=== PATIENT | female | born 1950 | race Caucasian/White ===

== ENCOUNTER 2019-04-08 09:53 | Observation (INO) ==
[2019-04-08] MEDS ORDERED: Naloxone 0.4 MG/ML INJ IVP PRN (14:36)
[2019-04-08] MEDS ORDERED: Ondansetron 4 MG/2 ML VIAL IVP PRN (14:36)
[2019-04-08] MEDS ORDERED: Acetaminophen 325 MG TABLET PO PRN (14:36)
[2019-04-08] MEDS ORDERED: *HR* HYDROcodone/Acet 5/325 mg TABLET PO PRN (14:36)
[2019-04-08] MEDS ORDERED: Furosemide 20 MG/2 ML VIAL IVP ONE (14:40)
--- NOTE | 2019-04-08 15:09 | Internal Med History&Physical ---
Date of Encounter: 04/08/19 Time of Encounter: 15:04 Internal Medicine - H&P: HPI Chief complaint: SOB, Cough and chest pressure Admitted From: Emergency Dept Plans for Post Hospital Care: Home History of present illness: Ms. Paredes is a 68 year old female with a known past medical history of COPD, diastolic CHF, hypertension and urinary incontinence patient presented to [place] emergency room complaining of SOB, chest pressure and she felt more like indigestion since this morning. She was transferred to our hospital further care. She does have intermitted SOB, Cough with greenish expectoration for few days. She denied any CP now. She denied any recent travel history/sick contacts. In the [place] ER her CXR showed left basilar infiltrate and mild pulmonary vascular congestion. Her initial troponin lesson 0.03 and WBC @ 6.2. She does have tachypnea and tachycardia Past Med Surg Social Fam HX - Past Medical History Medical history: CHF, COPD, GERD, hyperlipidemia, hypertension Additional medical history: HIATAL HERNIA. ABDOMINAL WALL HERNIA. CHOLELETHIASIS Psychiatric history: no psych history - Past Surgical History Additional surgical history: dental - Social History Smoking Status: Never smoker Smokeless Tobacco Status: No Alcohol use: none Drug use: none - Family History Mother History Unknown: Yes Father Hx Family Cardiac Disorders: Yes ([place]) Internal Medicine - H&P: Meds Aspirin [Lo-Dose Aspirin EC] 81 mg PO DAILY 07/22/16 [History] Cyclobenzaprine HCl 10 mg PO TID PRN 07/22/16 [History] Furosemide [Lasix] 40 mg PO DAILY 07/22/16 [History] Losartan [Cozaar] 50 mg PO DAILY 07/22/16 [History] Omeprazole [PriLOSEC] 40 mg PO DAILY 07/22/16 [History] Oxybutynin Chloride [Ditropan Xl] 10 mg PO DAILY 04/08/19 [History] Allergy/AdvReac Type Severity Reaction Status Date / Time tetracaine [From Pontocaine] Allergy Anaphylaxis Verified 01/08/17 21:14 Lemon AdvReac Blister Verified 01/08/17 20:56 All Systems PM: A 10-system review of systems was performed and is negative for pertinent findings except as documented above in the HPI. Review of systems: All the systems are reviewed everything is benign except the systems and symptoms I mentioned in the history of present illness - Constitutional Vitals: Temp Pulse Resp BP Pulse Ox 98.4 F 106 18 152/95 96 04/08/19 11:45 04/08/19 11:45 04/08/19 11:45 04/08/19 11:45 04/08/19 11:45 General appearance: Present: cooperative, mild distress, A&O X 3, answers questions appropriately Exam: Looks dehydrated with dry mucous membranes - Head Head exam: Present: atraumatic, normal inspection - Neck Neck exam general surgery: Present: supple - Respiratory Respiratory exam: Present: decreased breath sounds, wheezes (mild). Absent: rales, respiratory distress, rhonchi - Cardiovascular Cardiovascular exam: Present: +S1, +S2, tachycardia. Absent: systolic murmur - GI/Abdominal GI/Abdominal exam: Present: normal bowel sounds, soft. Absent: rebound, rigid, tenderness - Extremities Exam Extremities exam: Present: normal inspection. Absent: calf tenderness, pedal edema, tenderness - Back Exam Back exam: Absent: CVA tenderness (L), CVA tenderness (R) - Neurological Exam Neurological exam: Present: alert, CN II-XII intact, oriented X3. Absent: facial droop, speech deficit - Psychiatric Psychiatric exam: Present: normal affect, normal mood - Skin Skin exam: Present: dry. Absent: rash - Assessment and Plan (1) Pneumonia Current Visit: No Status: Acute Assessment and plan: Mostly bacterial pneumonia reviewed chest x-ray showed left basilar infiltrates and kaitlynn bronchial coughing/thickening blood cultures were drawn at [facility] ER Check sputum cx , step pneumonia, Legionella antigen and respiratory viral panel started her on empirical antibiotic IV Rocephin and azithromycin also started her on gentle IV hydration Qualifiers: Pneumonia type: due to unspecified organism Laterality: left Lung location: lower lobe of lung Qualified Code(s): J18.1 - Lobar pneumonia, unspecified organism (2) SIRS (systemic inflammatory response syndrome) Current Visit: Yes Status: Acute Assessment and plan: She does meet SIRS criteria with tachycardia and source of inf as PNA cont above care (3) Chest pain Current Visit: No Status: Acute Assessment and plan: Will admit the pt into [facility] for observation Will place pt on nuclear monitoring technician check serial troponin so far negative troponin Ordered EKG.. Unable to find EKG from [place] Cont ASA and Nitro PRN for pain Will check FLP in AM she is scheduled for outpatient stress test in a week since patient does have active pneumonia now will hold on to stress test for now continue close monitoring however will keep her NPO after midnight Qualifiers: Chest pain type: unspecified Qualified Code(s): R07.9 - Chest pain, un specified (4) Diastolic CHF Current Visit: Yes Status: Chronic Assessment and plan: Reviewed her 2D Echo from 2016 showed preserved LVEF and mild diastolic LV ventricular dysfunction not in exacerbation resumed all home medications except diuretics since pt looks dehydrated Qualifiers: Heart failure chronicity: chronic Qualified Code(s): I50.32 - Chronic diastolic (congestive) heart failure (5) COPD (chronic obstructive pulmonary disease) Current Visit: Yes Status: Acute Assessment and plan: Not in exacerbation started her on frequent bronchodilator therapy no need of steroids Qualifiers: Emphysema type: unspecified Qualified Code(s): J43.9 - Emphysema, unspecified (6) Hypertension Current Visit: Yes Status: Chronic Assessment and plan: Stable blood pressure continue current home medications Qualifiers: Hypertension type: essential hypertension Qualified Code(s): I10 - Essential (primary) hypertension (7) Urinary incontinence Current Visit: Yes Status: Acute Assessment and plan: Continue home medication oxybutynin Qualifiers: Urinary Incontinence type: unspecified incontinence Qualified Code(s): R32 - Unspecified urinary incontinence - Time Spent With Patient Total time spent is greater than 50% in coordination of care (as documented) at patient's floor/unit and/or counseling patient:
[2019-04-08] MEDS ORDERED: 0.9 % Sodium Chloride 1,000 ML IVC SCH (15:15)
[2019-04-08] MEDS: cefTRIAXone 1,000 MG in Water for inj. (sterile) 20 ML 10 ML IVP SCH (15:22)
[2019-04-08] MEDS ORDERED: Azithromycin 500 MG in D5% in Water 250 ML IVPB SCH (16:00)
[2019-04-08] MEDS ORDERED: Ipratropium/Albuterol Neb 3 ML IH SCH (16:00)
[2019-04-08 18:44] LABS: Adenovirus Not Detected (Not Detect); Coronavirus 229E Not Detected (Not Detect); Coronavirus HKU1 Not Detected (Not Detect)
[2019-04-08 18:45] LABS: Bordetella Pertussis Not Detected (Not Detect); Chlamydophila pneumoniae Not Detected (Not Detect); Coronavirus NL63 Not Detected (Not Detect); Coronavirus OC43 Not Detected (Not Detect); Human Metapneumovirus Not Detected (Not Detect); Human Rhinovirus/Enterovirus Not Detected (Not Detect); Influenza A Subtype 2009 H1 Not Detected (Not Detect); Influenza A Untypeable Not Detected (Not Detect); Influenza B Not Detected (Not Detect); Mycoplasma pneumoniae Not Detected (Not Detect); Parainfluenza Virus 1 Not Detected (Not Detect); Parainfluenza Virus 2 Not Detected (Not Detect); Parainfluenza Virus 3 Not Detected (Not Detect); Parainfluenza Virus 4 Not Detected (Not Detect); Respiratory Syncytial Virus Not Detected (Not Detect)
[2019-04-08] MEDS ORDERED: Perflutren Lipid Microsphere 1.3 ML in 0.9 % Sodium Chloride 8.7 ML IVP ONE (19:57)
[2019-04-08] MEDS: Levalbuterol Neb 1.25 MG/3 ML IH SCH (21:33)
[2019-04-08] MEDS ORDERED: GI Cocktail 40 ML EACH PO ONE (23:25)
[2019-04-09] MEDS: Levalbuterol Neb 1.25 MG/3 ML IH SCH ×3 (03:32→15:56)
[2019-04-09 04:07] LABS: Hemoglobin 12.5 g/dL (11.5-15.4); Mean Corpuscular HGB Conc 32.9 g/dL (31.6-35.5); Mean Corpuscular Hemoglobin 29.2 pg (28.0-33.3); Mean Corpuscular Volume 88.8 fL (83.0-100.0); Mean Platelet Volume 10.6 fL (9.4-12.4); Platelet Count 242 K/mcL (140-400); Red Blood Count 4.28 M/mcL (3.82-4.97); Red Cell Distribution Width 13.5 % (11.5-14.5)
[2019-04-09 04:27] LABS: BUN/Creatinine Ratio 20 (6-26); Blood Urea Nitrogen 16 mg/dL (8-23); Calcium 9.1 mg/dL (8.6-10.3); Carbon Dioxide 21 mEq/L (23-29); Chloride 107 mEq/L (98-107); Chol/HDL Ratio 4.8 (0-4.9); Cholesterol 179 mg/dL (< 200); Glucose 147 mg/dL (70-105); HDL Cholesterol 37 mg/dL (40-59); LDL Cholesterol,Calculated 129 mg/dL (0-99); Osmolality,Calculated 294 (280-300); Potassium 4.6 mEq/L (3.5-5.1); Sodium 140 mEq/L (136-145); Triglycerides 63 mg/dL (< 150); eGFR For African Americans > 60 (> 60); eGFR For Non-African Americans > 60 (> 60)
[2019-04-09] MEDS: *HR* Heparin 5,000 UNIT/ML VIAL SQ SCH ×2 (05:59→15:36)
[2019-04-09] MEDS: cefTRIAXone 1,000 MG in Water for inj. (sterile) 20 ML 10 ML IVP SCH (08:03)
[2019-04-09] MEDS ORDERED: Aspirin Enteric Coated 81 MG Tablet PO SCH (09:00)
[2019-04-09 11:09] VITALS: BP 117/75
--- NOTE | 2019-04-09 13:57 | Electrocardiograph Report ---
[address] [address] Test Date: 2019-04-09 Pat Name: Mykel Paredes Department: 113 Room: 3B14 Gender: F [employer] Professional: : 1950 Requested By: Sylvia Cano Order Number: [id number] Reading MD: Kevin Lynch Measurements Intervals [place] Rate: 103 P: 28 UT: 139 QRS: 20 QRSD: 85 T: 23 QT: 322 QTc: 382 Interpretive Statements SINUS TACHYCARDIA NONSPECIFIC ST & T-WAVE ABNORMALITY ABNORMAL RHYTHM ECG Electronically Signed On 04-09-2019 13:55:16 EDT by Kevin Lynch
--- NOTE | 2019-04-09 14:25 | Discharge Summary ---
- NOTES TO OUTPATIENT PROVIDER Notes to Outpatient Provider: f/u with PCP in one week. Orders not resulted at time of discharge: Pending orders 04/08/19 15:03 EKG [ECG 12 lead ECG] [ECG] Routine 04/08/19 20:40 Culture,Sputum with Gram Stain [RM] Routine Date of Encounter: 04/09/19 Time of Encounter: 14:21 - Discharge Diagnosis (1) Pneumonia Priority: Primary Status: Acute Qualifiers: Pneumonia type: due to unspecified organism Laterality: left Lung location: lower lobe of lung Qualified Code(s): J18.1 - Lobar pneumonia, unspecified organism (2) SIRS (systemic inflammatory response syndrome) Priority: Primary Status: Acute (3) Sinus tachycardia Priority: Primary Status: Acute (4) Chest pain Priority: Secondary Status: Acute Qualifiers: Chest pain type: unspecified Qualified Code(s): R07.9 - Chest pain, unspecified (5) Diastolic CHF Priority: Secondary Status: Chronic Qualifiers: Heart failure chronicity: chronic Qualified Code(s): I50.32 - Chronic diastolic (congestive) heart failure (6) COPD (chronic obstructive pulmonary disease) Priority: Secondary Status: Acute Qualifiers: Emphysema type: unspecified Qualified Code(s): J43.9 - Emphysema, unspecified (7) Hypertension Priority: Secondary Status: Chronic Qualifiers: Hypertension type: essential hypertension Qualified Code(s): I10 - Essential (primary) hypertension (8) Urinary incontinence Priority: Secondary Status: Acute Qualifiers: Urinary Incontinence type: unspecified incontinence Qualified Code(s): R32 - Unspecified urinary incontinence Hospital course: Ms. Paredes is a 68 year old female with a known past medical history of COPD, diastolic CHF, hypertension and urinary incontinence patient presented to [place] emergency room complaining of SOB, chest pressure and she felt more like indigestion since this morning. She was transferred to our hospital further care. She does have intermitted SOB, Cough with greenish expectoration for few days. She denied any CP now. She denied any recent travel history/sick contacts. In the [place] ER her CXR showed left basilar infiltrate and mild pulmonary vascular congestion. Her initial troponin lesson 0.03 and WBC @ 6.2. She did have tachypnea and tachycardia. She was admitted in the hospital and placed on library monitor. Her serial troponin came back as negative . She denied any active chest pain. She was placed on frequent bronchodilator therapy and empirical antibiotic as well as systemic steroids. Patient stated she is breathing comfortably on room air today and feeling much better today. She would like to go home today. She still have sinus tachycardia with heart rate @100's so started her on low dose of Metoprolol. - Time Spent with Patient Total time spent providing and/or coordinating discharge services: - Discharge Medications Prescriptions: New Albuterol Sulfate [Albuterol Inhaler] 2 puff IH Q6HR PRN #1 hfa.aer.ad PRN Reason: Shortness Of Breath levoFLOXacin [Levaquin] 500 mg PO DAILY #4 tablet Metoprolol [Lopressor] 12.5 mg PO BID #30 tablet predniSONE [PredniSONE] 40 mg PO DAILY #10 tablet Continued Furosemide [Lasix] 40 mg PO DAILY Cyclobenzaprine HCl 10 mg PO TID PRN PRN Reason: Muscle Spasm Losartan [Cozaar] 50 mg PO DAILY Aspirin [Lo-Dose Aspirin EC] 81 mg PO DAILY Omeprazole [PriLOSEC] 40 mg PO DAILY Oxybutynin Chloride [Ditropan Xl] 10 mg PO DAILY Home Medications: Aspirin [Lo-Dose Aspirin EC] 81 mg PO DAILY 07/22/16 [History] Cyclobenzaprine HCl 10 mg PO TID PRN 07/22/16 [History] Furosemide [Lasix] 40 mg PO DAILY 07/22/16 [History] Losartan [Cozaar] 50 mg PO DAILY 07/22/16 [History] Omeprazole [PriLOSEC] 40 mg PO DAILY 07/22/16 [History] Oxybutynin Chloride [Ditropan Xl] 10 mg PO DAILY 04/08/19 [History] Albuterol Sulfate [Albuterol Inhaler] 2 puff IH Q6HR PRN #1 hfa.aer.ad 04/09/19 [Rx] Metoprolol [Lopressor] 12.5 mg PO BID #30 tablet 04/09/19 [Rx] levoFLOXacin [Levaquin] 500 mg PO DAILY #4 tablet 04/09/19 [Rx] predniSONE [PredniSONE] 40 mg PO DAILY #10 tablet 04/09/19 [Rx] Allergies/Adverse Reactions: Allergy/AdvReac Type Severity Reaction Status Date / Time tetracaine [From Pontocaine] Allergy Anaphylaxis Verified 01/08/17 21:14 Lemon AdvReac Blister Verified 01/08/17 20:56 Date of admission: 04/08/19 11:13 Primary care physician: PCP NONE Consults: 04/09/19 08:14 Consult to Nurse Navigator [CONS] Routine Comment: PNEUMONIA - Constitutional Vitals: Temp Pulse Resp BP Pulse Ox 97.9 F 111 24 117/75 98 04/09/19 11:08 04/09/19 11:08 04/09/19 11:08 04/09/19 11:08 04/09/19 11:08 General appearance: Present: cooperative, A&O X 3, answers questions appropriately Exam: Gen: Alert, awake, Oriented to time,place and person Chest: Diminished breath sounds B/L, No wheezing, No crackles, No rales Heart: S1S2+ tachcardia No murmurs Abd: Soft, NT, BS +, No organomegaly Ext: No edema, pulses are palpable, No calf tenderness Neuro : No acute focal neuro deficits noticed Skin: No rash. - Patient Status Disposition: Home, Self-Care Condition: Good Overall status at discharge: patient is back to baseline - Discharge Instructions Follow Up With: NONE,PCP [Primary Care Provider] - - Diet and Activity Activity: increase activity as tolerated Diet: low salt diet
== END 2019-04-09 16:15 | disposition home or self-care (01) ==
LOC: CDU → 3BNU 16:42
PROVIDERS: ADMIT Internal Medicine Nephrology; ATTEND Internal Medicine Nephrology

== ENCOUNTER 2019-07-05 09:19 | Inpatient (IN) ==
--- NOTE | 2019-07-05 10:25 | Anesthesia Evaluation PreOp ---
Date of Encounter: 07/05/19 Time of Encounter: 10:23 - Past History Planned Operation: robotic transabdominal removal bladder mesh Cardiac History: HTN, Hyperlipidemia Pulmonary History: Former smoker (quit 2003), Asthma, COPD EXHIBIT CARPENTER History: Denies Any Significant HX Other Medical History: Thyroid (hypo), GERD Anesthesia History: No Prior Anesthetic Complications, Past Anesthesia (hysterectomy, ESWL, hernia, bladder sling) : No Alcohol Use: none Drug use: none Medications and Allergies Aspirin [Lo-Dose Aspirin EC] 81 mg PO DAILY 07/22/16 [History] Cyclobenzaprine HCl 10 mg PO TID PRN 07/22/16 [History] Furosemide [Lasix] 40 mg PO DAILY 07/22/16 [History] Losartan [Cozaar] 50 mg PO DAILY 07/22/16 [History] Omeprazole [PriLOSEC] 40 mg PO DAILY 07/22/16 [History] Oxybutynin Chloride [Ditropan XL] 10 mg PO DAILY 04/08/19 [History] Albuterol Sulfate [Albuterol Inhaler] 2 puff IH Q6HR PRN #1 hfa.aer.ad 04/09/19 [Rx] Metoprolol [Lopressor] 12.5 mg PO BID #30 tablet 04/09/19 [Rx] levoFLOXacin [Levaquin] 500 mg PO DAILY #4 tablet 04/09/19 [Rx] HYDROcodone/Acet 5/325 mg [[place] 5-325 mg] 1 tab PO Q6H PRN 3 Days #10 tab 05/21/19 [Rx] Levothyroxine Sodium [Levoxyl] 50 mcg PO DAILY 05/21/19 [History] levoFLOXacin [Levaquin] 500 mg PO DAILY #5 tablet 05/21/19 [Rx] Allergy/AdvReac Type Severity Reaction Status Date / Time etodolac Allergy Hives Verified 05/21/19 09:00 Lemon Allergy Blister Verified 05/21/19 09:00 tetracaine [From Pontocaine] AdvReac Severe Anaphylaxis Verified 06/23/19 09:42 - Meds/Allergy Pre-op Review Medications Reviewed: Yes Allergies Reviewed: Yes Beta Blockers on Current Med List: Yes (metoprolol) If Beta Blockers taken, Date/Time (Last Dose taken): 0700 Anesthesia Results - Labs Laboratory Tests 04/09/19 05/17/19 05/17/19 03:29 11:00 11:00 WBC 12.0 H D Hgb 13.5 Hct 38.0 Plt Count 242 Potassium 4.5 - Imaging EKG: report reviewed Additional studies: 03/2019 echocardiogram w enhance Impressions: LVEF 70%. Definity echo contrast was used. Indeterminate diastolic function. Normal right ventricular structure and function. Mild tricuspid regurgitation. No pulmonary hypertension. 06/2019 Indications: Pre-operative, Chest Pain Impression: No ischemia or infarct on perfusion study. Technical artifact present (rest only mid inferior perfusion defect of small size and mild intensity). Stress LVEF >70%. Pharmacologic stress ECG non-diagnostic for ischemia. Low risk study. Anesthesia Exam Vital Signs/O2 Sat/Glucose, Most Recent Temp Pulse Resp BP Pulse Ox 98.3 F 71 18 163/92 96 07/05/19 10:01 07/05/19 10:01 07/05/19 10:01 07/05/19 10:01 07/05/19 10:01 Weight: 93 kg NPO (# of Hours): > 8 hr - HEENT Pupil (Motor): Pupils equal Mallampati: II Teeth: Poor dentition (chipped top front right) - EXHIBIT CARPENTER LOC: Oriented EXHIBIT CARPENTER Motor: Normal RUE, Normal LUE, Normal RLE, Normal LLE, Normal Face EXHIBIT CARPENTER Sensory: Normal: RUE, LUE, RLE, LLE, Face - Cardiac Rhythm: Regular Murmur: None - Pulmonary Breath Sounds: bilateral Clear Respiratory Effort: Symmetrical Anesthesia Assess/Plan ASA Score: 3 Level of consciousness: Cooperative, Oriented Anesthetic Plan: General Monitoring Plan: Standard Monitors Recovery Plan: PACU
[2019-07-05] MEDS ORDERED: *HR* HYDROmorphone (PF) 1 MG/ML SYRINGE IVP PRN (10:29)
[2019-07-05] MEDS ORDERED: Gabapentin 300 MG CAPSULE PO ONE (10:29)
[2019-07-05] MEDS ORDERED: Albuterol 2.5 MG/3 ML NEBULIZER IH ONE (10:29)
[2019-07-05] MEDS ORDERED: Acetaminophen IV 1,000 MG/100 ML INFUS..BTL IVPB ONE (10:29)
[2019-07-05] MEDS ORDERED: *HR* Labetalol 20 MG/4 ML SYRINGE IVP PRN (10:29)
[2019-07-05] MEDS ORDERED: *HR* Promethazine 25 MG/ML VIAL IVP PRN (10:29)
[2019-07-05] MEDS ORDERED: Famotidine 20 MG/2 ML VIAL IVP ONE (10:29)
[2019-07-05] MEDS ORDERED: *HR* OxyCODONE Immed Rel 5 MG TABLET PO PRN (10:29)
[2019-07-05] MEDS ORDERED: Ondansetron 4 MG/2 ML VIAL IVP ONE (10:29)
[2019-07-05] MEDS ORDERED: CeFAZolin Syr 2,000MG/20 ML 2,000 MG/20 ML SYRINGE IVPB ONE (10:37)
--- NOTE | 2019-07-05 11:01 | History & Physical Report ---
Date of Encounter: 07/05/19 Time of Encounter: 11:00 24 Hour HP Update - Instructions Instructions: If the History and Physical is less than 30 days old and was completed prior to A.M. admission and or procedure and has NOT been updated on calendar day of procedure please complete this update prior to performing procedure. - Update Patient reports changes in Medical Condition: No Changes in examination, assessment, or condition: No Changes in Medication: No Preop tests/diagnostics Reviewed: Yes Surgery Remains Indicated: Yes Consent for Planned Operative Procedure(s) Verified: Yes - Pre-Operative Checklist Preoperative Checklist Indicated: Yes Prophylactic Antibiotic Ordered: Yes Is VTE Prophylaxis Indicated?: Yes
[2019-07-05] MEDS ORDERED: *HR* Propofol 200 MG/20 ML VIAL IVP ONE (11:56)
[2019-07-05] MEDS: Ringers Solution, Lactated 1,000 ML IVC SCH ×2 (12:00→14:17)
[2019-07-05] MEDS ORDERED: *HR* FentaNYL (PF) 100 MCG/2 ML VIAL ONE ×2 (12:08→13:29)
[2019-07-05] MEDS ORDERED: Dexamethasone 4 MG/ML VIAL ONE (12:10)
[2019-07-05] MEDS ORDERED: Lidocaine -MPF 2% 2 ML VIAL ONE (12:10)
[2019-07-05] MEDS ORDERED: Ondansetron 4 MG/2 ML VIAL ONE (12:10)
[2019-07-05] MEDS ORDERED: *HR* Succinylcholine 200 MG/10 ML VIAL IVP ONE (12:10)
[2019-07-05] MEDS ORDERED: *HR* Rocuronium Bromide 50 MG/5 ML VIAL ONE ×3 (12:10→17:18)
[2019-07-05] MEDS ORDERED: *HR* PHENYLEPHRINE 1,000 MCG/10 ML SYRINGE IVP ONE ×3 (13:15→18:44)
[2019-07-05] MEDS ORDERED: EPHEDrine 50 MG/ML VIAL ONE ×2 (15:21→17:02)
[2019-07-05] MEDS ORDERED: Neostigmine Methylsulfate 3 MG/3 ML SYRINGE ONE (16:29)
[2019-07-05] MEDS ORDERED: *HR* HYDROMORPHONE 2 MG/ML VIAL ONE (19:36)
--- NOTE | 2019-07-05 19:57 | Operative Note ---
Date of procedure: 07/05/19 Pre-op diagnosis: Eroded mesh into bladder Post-op diagnosis: same Procedure: Complicated lysis of adhesions Robotic transabdominal removal of bladder mesh and repair of bladder. Implants: 16-Greek Jaeger catheter 19-Greek Ramone drain Complications: None Anesthesia: GETA Surgeon: Phillip Merritt Was there an night assistant present: Yes Apprentice Plumber: Chayo Ramsay Estimated blood loss (cc): 300 Specimen: bladder mesh Condition: stable Disposition: PACU Procedure in Detail: INDICATIONS FOR PROCEDURE: Mrs. Paredes is a 68-year-old woman who previously had a transvaginal tape. She recently developed recurrent urinary tract infections and was noted to have a bladder stone. This was removed cystoscopically and mesh was seen eroding into the bladder. She then elected to proceed with a robotic-assisted transabdominal removal of bladder mesh and repair of bladder. She was informed of the risks of the procedure including but not limited to bleeding, infection, injury to other structures, need for further procedures, urinary incontinence, urine leak, bowel injury, DVT, PE and the risk of anesthesia. She is willing to proceed. PROCEDURE: After informed consent was obtained, the patient was taken to the operating room, placed supine on the table. She was given IV antibiotics for antibiotic coverage. She had GALLITO's and SCD's placed on the lower extremities for DVT prophylaxis. Induction of general anesthesia was performed. The arms were tucked and she was placed in lithotomy position. She was secured to the OR table with padding. An 16 Greek Jaeger catheter was placed. A 5mm incision was made in the left upper quadrant. She previously had abdominal surgery with abdominal wall mesh placed. I tried to stay lateral to that area. The Veress needle was i ntroduced. The water drop test passed. Pneumoperitoneum was initiated with low pressures initially. The abomen was insufflated. I then placed a 5mm laparoscopic port through this incision using the visual obturator and the camera. Once the trocar was in place, the port was noted to be within some adhesions. I was able to manipulate the port and identify the abdomen. There was a very dense adhesion from the falciform ligament extending down the midline towards the bladder. There was open space in the right lower quadrant and I placed my 2 robotic ports there. In order to aid in visualization I placed another 5 mm port in the right upper quadrant. Using the suction and sharp scissors the adhesions were taken down. The lysis of adhesions was extensive. This took approximately one hour to safely do so. Eventually I was able to place an 8 mm port in the infrapubic region. Another robotic port was placed lateral to the umbilicus. The 12 mm aerocele port was placed lateral to this on the left side. There was some bleeding from the omentum but it seemed to be controlled. Once all trocars were in place, the robot was docked to the patient and the monopolar scissors were placed on the right robotic arm. The bipolar [place] was in the left robotic arm and the Prograsp in the 4th arm. We initially retracted the bowel with the 4th arm. The medial umbilical ligaments were cauterized and the bladder was taken down off the anterior abdominal wall using electrocautery. The bladder was then grasped with a 4th arm and retracted cephalad. The space of Retzius was adherent. Careful dissection by the pubic bone was performed. I was able to identify the 2 arms of the mesh. One arm extended to the left lower quadrant and another was towards the right lower quadrant. With the mesh grasp I carefully dissected out. It appeared that the arm on the left side extended into the bladder. The bladder was opened during this dissection. I then cut the mesh off at the area where was located in the bladder. I then proceeded to dissect the right arm down. This went towards the urethra, but the mesh came back up along the right side of the urethra into the bladder. It appeared that the mesh was placed on the same side of the urethra. The mesh was removed. Hemostasis seemed adequate. I closed the bladder urothelial layer using a running 3-0 Monocryl suture. The muscular layer was closed using a running 2-0 Vicryl suture. A third layer using 2-0 Vicryl suture was placed over top to imbricate the suture inward. At this point I placed a 19-Greek Ramone through the fourth arm. This was secured to the skin. We then proceeded to close the wounds. The omentum was reassessed. There did appear to be some old blood clot, but there did not appear to be any extensive bleeding. The ports were then removed. The 12 mm port was closed using an 0 Vicryl suture. All incisions were then closed with 4-0 Monocryl in subcuticular fashion. All sponge, needle, and instrument counts were correct.
--- NOTE | 2019-07-05 20:02 | Operative Note ---
Date of procedure: 07/05/19 Pre-op diagnosis: Postoperative hemorrhage Post-op diagnosis: same Procedure: Exploratory laparoscopy Closure of dorsal venous complex Implants: 19-Turkish XU drain. Jaeger catheter. Complications: none Anesthesia: JAGJIT Surgeon: Phillip Merritt Was there an phlebotomist lab assistant present: No Estimated blood loss (cc): 510 Specimen: none Condition: stable Disposition: PACU Procedure in Detail: Indications: Mrs. Paredes is a 68-year-old woman who I just finished removal of bladder mesh. She was still intubated and I was alerted that she was having excessive bloody drainage from her XU. I monitored the XU in the operating room with her still intubated. The drainage did not slow down. At this point I felt it best to proceed with exploratory laparoscopy. I informed her that I was going to reexplore her. This was considered emergent. Procedure: The patient was already anesthetized. She was prepped and draped in the usual sterile fashion. I opened my port sites. A 5 mm port was placed and the abdomen was insufflated. The laparoscope was introduced into the abdomen. There was some minor blood clot over the omentum which was aspirated away. The remaining robotic ports were placed as before. The robot was then docked and the patient was pre-was placed in a headdown position. I explored the pelvis. There appeared to be bleeding coming from the dorsal venous complex. The blood clot was aspirated away. The dorsal venous complex was oversewed using a 3-0 Vicryl suture. Hemostasis appeared adequate. Surgical flow was placed on the dorsal venous complex. Surgicel was then placed over top as well. The bladder was then secured to the anterior abdominal wall using both 3-0 Vicryl sutures and Hemolok clips. I felt this would help in providing some tamponade effect upon the veinous complex. Hemostasis appeared adequate. I asked Dr. Varun German to come to the operating room. She reviewed the area of bleeding. She assess the omentum and was not concerned about the bleeding. At this point we proceeded to close. A XU drain was replaced. This was secured to the skin using a suture. The wounds were then closed after the ports were removed using 4-0 Vicryl suture . At the end the case all sponge, needle, and instrument counts were correct. The patient was then brought to the recovery room stable. She did receive 2 units of packed red blood cells during this portion of the case.
[2019-07-05] MEDS ORDERED: Ondansetron 4 MG/2 ML VIAL IVP PRN (21:28)
[2019-07-05] MEDS ORDERED: Naloxone 0.4 MG/ML INJ IVP PRN (21:28)
[2019-07-05] MEDS ORDERED: Acetaminophen 325 MG TABLET PO PRN (21:31)
--- NOTE | 2019-07-05 22:04 | Internal Medicine Consult Note ---
<Sandy Fox A - Last Filed: 07/06/19 05:45> Date of Encounter: 07/05/19 - Time Spent With Patient Total time spent is greater than 50% in coordination of care (as documented) at patient's floor/unit and/or counseling patient: Internal Medicine - CN: HPI - Data of Consult Requesting Physician: Phillip Merritt, - Consult Narrative History of present illness: Ms. Paredes is a 68 year old female Internal Medicine - CN: Meds Cyclobenzaprine HCl 10 mg PO TID PRN 07/22/16 [History] Furosemide [Lasix] 40 mg PO QAM PRN 07/22/16 [History] Omeprazole [PriLOSEC] 40 mg PO QAM 07/22/16 [History] Oxybutynin Chloride [Ditropan XL] 10 mg PO QAM 04/08/19 [History] Albuterol Sulfate [Albuterol Inhaler] 2 puff IH Q6HR PRN #1 hfa.aer.ad 04/09/19 [Rx] Metoprolol [Lopressor] 12.5 mg PO BID #30 tablet 04/09/19 [Rx] Levothyroxine Sodium [Levoxyl] 50 mcg PO QAM 05/21/19 [History] Aspirin [Lo-Dose Aspirin EC] 81 mg PO QAM 07/05/19 [History] Losartan Potassium [Cozaar] 50 mg PO QAM 07/05/19 [History] Allergy/AdvReac Type Severity Reaction Status Date / Time etodolac Allergy Hives Verified 07/05/19 10:35 Lemon Allergy Blister Verified 07/05/19 10:35 tetracaine [From Pontocaine] AdvReac Severe Anaphylaxis Verified 07/05/19 10:35 Hospitalist - CN: Exam - Constitutional Vitals: Temp Pulse Resp BP Pulse Ox 97.6 F 88 14 110/71 95 07/06/19 04:12 07/06/19 03:26 07/06/19 03:00 07/06/19 03:00 07/06/19 03:00 Internal Medicine - CN: Reslt - Labs CBC & Chem 7: 07/06/19 03:02 07/06/19 03:02 Labs: Short CBC 07/05/19 07/06/19 Range/Units 23:15 03:02 WBC 17.4 H 14.2 H (4.3-11.1) K/mcL Hgb 11.5 10.4 L (11.5-15.4) g/dL Hct 36.3 32.4 L (35.3-44.9) % Plt Count 156 149 (140-400) K/mcL Neutrophils # 15.2 H (1.6-8.9) K/mcL BMP 07/05/19 07/06/19 23:15 03:02 Sodium 139 140 Potassium 3.7 4.0 Chloride 110 H 111 H Carbon Dioxide 13 L 17 L BUN 12 12 Creatinine 0.77 0.77 Glucose 174 H 145 H Calcium 7.2 L 7.5 L - ABG Interpretation ABG results: PT/INR, D-dimer PT 13.1 Seconds (9.4-12.1) H 07/05/19 23:15 Consult Discharge Plan - Plan Referrals: Doris Condon, WOOL SHEARER [Primary Care Provider] - - Attending Attestation I performed a history and physical examination of the patient and discussed thei r management with the resident. I reviewed the resident's note and agree with the documented plan of care. In short patient is a 68-year-old female with multiple comorbidities who presented for elective surgery for removal of a transvaginal mesh which had eroded into the bladder wall (see operative notes). Postoperatively patient was noted to have excessive bloody drainage from her XU which did not gagandeep with time. Patient was subsequently taken for an emergent exploratory laparoscopy assisted by Dr. Varun German with no further findings of significant bleed. XU drain was replaced and Patient received 2 units of PRBCs and IV fluids to which she appears to have responded and was subsequently transferred to the ICU for close monitoring. On my assessment, patient's vitals are stable. She was awake alert oriented 3 and somewhat confused as to why she was in the ICU. Repeat hemoglobin was stable. Was noted to have an elevated lactic acid of 6.0. We will continue maintenance fluids and repeat lactic acid. Blood and urine cultures obtained. Agree with antibiotic coverage with Zosyn. <Marcin Graham - Last Filed: 07/06/19 06:27> Date of Encounter: 07/06/19 Time of Encounter: 22:00 - Time Spent With Patient Total time spent is greater than 50% in coordination of care (as documented) at patient's floor/unit and/or counseling patient: Internal Medicine - CN: HPI - Data of Consult Consult date: 07/05/19 Requesting Physician: Phillip Merritt, - Consult Narrative Reason for consult: Hypotension History of present illness: Ms. Paredes is a 68 year old female with significant past medical history of COPD, diastolic CHF, hypertension , thyroid disease, asthma, GERD, and urinary incontinence currently on oxybutynin, omeprazole, Lopressor, losartan, levothyroxine, Lasix, aspirin, cyclobenzaprine and albuterol presenting to the ICU after urological surgery. The patient was initially taken for bladder mesh placement by Dr. Merritt and was noted to have significant bloody output from her XU drain. The patient was subsequently taken back in the surgery where a venous complex was found as the source the patient's bleeding which was sealed. Patient has received 2 units of PRBCs and IV fluids and appears to have responded well. Ancef given perioperatively. Upon my initial examination the patient has been extubated in the ICU she is awake alert and oriented although lethargic status after surgery. The patient states that she feels nauseated and has soreness in her bladder area after the surgery but has no other concerns or complaints this time. She asks why that she is in the ICU. I explained to patient her surgical procedure and the necessity to take her back for hemodynamic stability after bleeding. While the patient states she understood this initially she asked again prior to my leaving the room why she was in the ICU. I again explained what was going on and the patient said that she understood and had no other concerns or complaints this time. The patient verifies all above stated past medical history, medications and allergies and states that she has nothing to add to this history. The cardiopulmonary exam is unremarkable, skin is pink warm and dry, abdomen appears to be distended but is otherwise soft it is tender to palpation in the lower quadrants however this is consistent with her recent surgery, laparotomy surgical sites are close appropriately there is no evidence of erythema or exudate from the wounds. XU drain has serosanguineous fluid noted as consistent with note from urological surgery. The patient is otherwise mechanically stable at this time. Assessment and plan: Hypotension status post pelvic surgery: Patient has received 2 units PRBCs and is currently on 0.9 sodium chloride maintenance fluid at 125 mL per hour. Patient has received Ancef. Perioperatively. Patient has orders placed for when necessary hydrocodone/acetaminophen 5/325 for moderate pain. Oxycodone for severe pain. Ondansetron/Phenergan when necessary for the management of nausea. Low threshold for transfusion, continue IV fluids. If patient remains stable overnight can be discharged to regular floor in the morning. DVT Prophylaxis: EPCDs Past Med Surg Social Fam HX - Past Medical History Medical history: asthma, CHF, COPD, GERD, hyperlipidemia, hypertension, kidney stones, thyroid disease Additional medical history: HIATAL HERNIA, stomach ulcer, chest pain hx, emphysema, bursitis,. ABDOMINAL WALL HERNIA. CHOLELETHIASIS Psychiatric history: no psych history - Past Surgical History Surgical History: herniorrhaphy, hysterectomy, NELSON/BSO, other Additional surgical history: dental, ganglion cyst, ESWL - Social History Smoking Status: Former smoker Smokeless Tobacco Status: No Alcohol use: none Drug use: none - Family History Father Hx Family Cardiac Disorders: Yes ([place]) ROS unobtainable: due to endotracheal tube Hospitalist - CN: Exam - Constitutional Vitals: Temp Pulse Resp BP Pulse Ox 97.5 F L 90 14 101/65 97 07/05/19 21:38 07/05/19 21:38 07/05/19 21:38 07/05/19 21:38 07/05/19 21:38 Exam: . Internal Medicine - CN: Reslt - Labs CBC & Chem 7: 07/06/19 03:02 07/06/19 03:02
--- NOTE | 2019-07-05 22:22 | Anesthesia Evaluation Post Op ---
Date of Encounter: 07/05/19 Time of Encounter: 21:30 - Vital Signs Vital Signs: Vital Signs/O2 Sat/Glucose, Most Current Temp Pulse Resp BP Pulse Ox 07/05/19 21:38 97.5 F L 90 14 101/65 97 07/05/19 21:28 97.5 F L 93 12 100/59 99 07/05/19 21:18 92 12 103/67 100 07/05/19 21:08 94 12 83/54 100 07/05/19 20:58 97.7 F 96 12 95/55 100 07/05/19 20:48 89 12 103/53 100 07/05/19 20:38 90 14 102/69 97 07/05/19 20:33 85 99/61 07/05/19 20:28 97.3 F L 92 12 101/59 100 07/05/19 20:18 76 10 96/62 100 07/05/19 20:15 70 97/59 07/05/19 20:08 72 10 91/57 95 07/05/19 20:03 74 89/57 07/05/19 19:58 97.1 F L 87 10 105/66 100 - Lungs Lungs: Clear Ascult./Percussion - Airway Airway: Non-obstructed - Cardiovascular Regular Rate - Mental Status Mental Status: Alert & Oriented, Answers Appropriately - Pain Pain Scale: 0 - Nausea Vomiting Nausea Vomiting: Not Present - Hydration Hydration: NPO - Discharge PostOp Status: Transfer Patient to floor (to ICU)
[2019-07-05] MEDS: 0.9 % Sodium Chloride 1,000 ML IVC SCH (22:26)
[2019-07-05 23:53] LABS: Basophils % 0.1 %; Hematocrit 36.3 % (35.3-44.9); Hemoglobin 11.5 g/dL (11.5-15.4); Immature Granulocytes % 0.4 % (0-4); Lymphocytes # 1.4 K/mcL (0.6-4.6); Mean Corpuscular HGB Conc 31.7 g/dL (31.6-35.5); Mean Corpuscular Volume 94.8 fL (83.0-100.0); Mean Platelet Volume 11.3 fL (9.4-12.4); Monocytes # 0.8 K/mcL (0.0-1.3); Monocytes % 4.6 %; Neutrophils # 15.2 K/mcL (1.6-8.9); Platelet Count 156 K/mcL (140-400); Red Blood Count 3.83 M/mcL (3.82-4.97); Red Cell Distribution Width 14.1 % (11.5-14.5); Segmented Neutrophils % 86.9 %; White Blood Count 17.4 K/mcL (4.3-11.1)
[2019-07-06 00:01] LABS: INR 1.2; Prothrombin Time 13.1 Seconds (9.4-12.1)
[2019-07-06 00:12] LABS: BUN/Creatinine Ratio 16 (6-26); Blood Urea Nitrogen 12 mg/dL (8-23); Calcium 7.2 mg/dL (8.6-10.3); Carbon Dioxide 13 mEq/L (23-29); Chloride 110 mEq/L (98-107); Glucose 174 mg/dL (70-105); Osmolality,Calculated 292 (280-300); Potassium 3.7 mEq/L (3.5-5.1); Sodium 139 mEq/L (136-145); eGFR For African Americans > 60 (> 60); eGFR For Non-African Americans > 60 (> 60)
[2019-07-06] MEDS ORDERED: Calcium Gluconate 2,000 MG in 0.9 % Sodium Chloride 100 ML IVPB ONE (00:49)
[2019-07-06] MEDS ORDERED: 0.9 % Sodium Chloride 1,000 ML IVC ONE (01:46)
[2019-07-06] MEDS: *HR* HYDROcodone/Acet 5/325 mg TABLET PO PRN ×3 (01:47→20:03)
[2019-07-06 03:34] LABS: BUN/Creatinine Ratio 16 (6-26); Blood Urea Nitrogen 12 mg/dL (8-23); Calcium 7.5 mg/dL (8.6-10.3); Carbon Dioxide 17 mEq/L (23-29); Chloride 111 mEq/L (98-107); Glucose 145 mg/dL (70-105); Osmolality,Calculated 292 (280-300); Sodium 140 mEq/L (136-145); eGFR For African Americans > 60 (> 60); eGFR For Non-African Americans > 60 (> 60)
[2019-07-06 03:52] LABS: Hematocrit 32.4 % (35.3-44.9); Hemoglobin 10.4 g/dL (11.5-15.4); Mean Corpuscular HGB Conc 32.1 g/dL (31.6-35.5); Mean Corpuscular Hemoglobin 29.5 pg (28.0-33.3); Mean Platelet Volume 11.6 fL (9.4-12.4); Platelet Count 149 K/mcL (140-400); Red Blood Count 3.52 M/mcL (3.82-4.97); Red Cell Distribution Width 14.1 % (11.5-14.5); White Blood Count 14.2 K/mcL (4.3-11.1)
[2019-07-06] MEDS ORDERED: Calcium Gluconate 1gm/50mL 1 GM/50 ML BAG IVPB ONE (04:14)
[2019-07-06] MEDS ORDERED: Piperacillin/Tazobactam 3.375 GM in 0.9 % Sodium Chloride Mini Bag 100 ML IVPB SCH ×2 (06:00→14:00)
[2019-07-06] MEDS: 0.9 % Sodium Chloride 1,000 ML IVC SCH ×2 (06:08→20:02)
--- NOTE | 2019-07-06 09:22 | Urology Progress Note ---
Date of Encounter: 07/06/19 Time of Encounter: 08:50 - Assessment and Plan (1) Urinary incontinence Current Visit: Yes Status: Acute Qualifiers: Urinary Incontinence type: unspecified incontinence Qualified Code(s): R32 - Unspecified urinary incontinence (2) Erosion of bladder suspension mesh Current Visit: Yes Status: Acute Assessment and plan: Patient is a 68-year-old female who presents one day status post complicated lysis of adhesions, robotic transabdominal removal of bladder mesh, repair of bladder and exploratory laparoscopy with closure of dorsal venous complex. Patient appears to be recovering well postoperatively. Vital signs are stable and afebrile. Hemoglobin and renal function are both reassuring. Patient will likely be transferred from ICU to , as her overall condition appears greatly improved. Urology will continue to closely follow patient. Qualifiers: Encounter type: sequela Qualified Code(s): T83.718S - Erosion of other implanted mesh to organ or tissue, sequela Progress Note Subjective: feels better Narrative: POD #1. Patient seen and examined sitting upright in bed in no apparent distress. Patient reports pain is well-controlled at present. She denies any fever, chills, nausea, vomiting, uncontrolled pain, chest pain, dyspnea or calf pain. Jaeger catheter is indwelling and draining transparent, pink lemonade urine into bedside bag. Objective Initial Vital Signs Temp Pulse Resp BP Pulse Ox 98.3 F 71 18 163/92 96 07/05/19 10:01 07/05/19 10:01 07/05/19 10:01 07/05/19 10:01 07/05/19 10:01 - General physical appearance Present: well developed, no distress, no pain - Respiratory Present: normal expansion, normal respiratory effort - Abdomen Present: soft, non tender, wound (Primary incisions clean, dry, intact). Absent: distended - Genitourinary Urine Appearance: Present: Hematuria (Transparent, pink lemonade) - Integumentary Present: no rash, no abnormal pigmentation - Psychiatric Present: oriented to time, oriented to person, oriented to place, speech is normal, memory intact - Labs 07/06/19 03:02 07/06/19 03:02 Diabetes panel 07/05/19 07/06/19 Range/Units 23:15 03:02 Sodium 139 140 (136-145) mEq/L Potassium 3.7 4.0 (3.5-5.1) mEq/L Chloride 110 H 111 H (98-107) mEq/L Carbon Dioxide 13 L 17 L (23-29) mEq/L BUN 12 12 (8-23) mg/dL Creatinine 0.77 0.77 (0.60-1.20) mg/dL Glucose 174 H 145 H (70-105) mg/dL Calcium 7.2 L 7.5 L (8.6-10.3) mg/dL Calcium panel 07/05/19 07/06/19 Range/Units 23:15 03:02 Calcium 7.2 L 7.5 L (8.6-10.3) mg/dL Pituitary panel 07/05/19 07/06/19 Range/Units 23:15 03:02 Sodium 139 140 (136-145) mEq/L Potassium 3.7 4.0 (3.5-5.1) mEq/L Chloride 110 H 111 H (98-107) mEq/L Carbon Dioxide 13 L 17 L (23-29) mEq/L BUN 12 12 (8-23) mg/dL Creatinine 0.77 0.77 (0.60-1.20) mg/dL Glucose 174 H 145 H (70-105) mg/dL Calcium 7.2 L 7.5 L (8.6-10.3) mg/dL Adrenal panel 07/05/19 07/06/19 Range/Units 23:15 03:02 Sodium 139 140 (136-145) mEq/L Potassium 3.7 4.0 (3.5-5.1) mEq/L Chloride 110 H 111 H (98-107) mEq/L Carbon Dioxide 13 L 17 L (23-29) mEq/L BUN 12 12 (8-23) mg/dL Creatinine 0.77 0.77 (0.60-1.20) mg/dL Glucose 174 H 145 H (70-105) mg/dL Calcium 7.2 L 7.5 L (8.6-10.3) mg/dL Consult Discharge Plan - Plan Referrals: Doris Condon, RIG BUILDER HELPER [Primary Care Provider] -
[2019-07-06] MEDS ORDERED: 0.9 % Sodium Chloride 1,000 ML IVC SCH (09:56)
--- NOTE | 2019-07-06 17:27 | Internal Med Progress Note ---
Hospitalist Progress Note - Encounter Date of Encounter: 07/06/19 Time of Encounter: 09:30 - Subjective Interval History: Post-operative events noted. Patient responded nicely to IV fluids and did not require pressor support. She did have to go back in to surgery shortly after her initial surgery, as noted by Dr. Merritt. Her blood pressures normalized, and she is eating and drinking well now. Her lactate is trending down and likely due to blood loss and operative intervention. I discussed with Dr. Merritt, and we will transition her out of the ICU to the telemetry floor with ongoing monitoring. - Exam Vitals: Temp Pulse Resp BP Pulse Ox 98.3 F 86 20 109/59 96 07/06/19 15:50 07/06/19 15:00 07/06/19 15:00 07/06/19 15:00 07/06/19 15:00 Exam: General: NAD; sitting up in bed HEENT: neck supple, moist mucosa Chest: CTA B, no WRR, RRR Abdomen: soft, incisional pain, + BS, Ext: no CCE; no calf pain Neuro: A&Ox3, no focal deficits Skin: warm and dry - Assessment and Plan (1) Post-operative hemorrhage Current Visit: Yes Status: Acute Assessment and Plan: 1. Resolved. 2. Return to surgery last night per Dr. Merritt. 3. She received 2 units PRBC's and IVF's with hemodynamic stabilization. 4. Monitor H/H and transition out of ICU to telemetry floor. (2) Hypothyroidism Current Visit: Yes Status: Acute Assessment and Plan: 1. Continue home meds. (3) Hypertension Current Visit: Yes Status: Chronic Assessment and Plan: 1. Resume BB with hold parameters. 2. Hold other BP meds for now and resume as BP allows with cautious monitoring. (4) DVT prophylaxis Current Visit: Yes Status: Acute Assessment and Plan: 1. EPCD's. - Time Spent with Patient Total time spent is greater than 50% in coordination of care (as documented) at patient's floor/unit and/or counseling patient: Plan of Care Discussed with: other (MDR team, Dr. Merritt) Internal Medicine: Result - Labs CBC & Chem 7: 07/06/19 03:02 07/06/19 03:02 Labs: Short CBC 07/05/19 07/06/19 Range/Units 23:15 03:02 WBC 17.4 H 14.2 H (4.3-11.1) K/mcL Hgb 11.5 10.4 L (11.5-15.4) g/dL Hct 36.3 32.4 L (35.3-44.9) % Plt Count 156 149 (140-400) K/mcL Neutrophils # 15.2 H (1.6-8.9) K/mcL BMP 07/05/19 07/06/19 23:15 03:02 Sodium 139 140 Potassium 3.7 4.0 Chloride 110 H 111 H Carbon Dioxide 13 L 17 L BUN 12 12 Creatinine 0.77 0.77 Glucose 174 H 145 H Calcium 7.2 L 7.5 L - ABG Interpretation ABG results: PT/INR, D-dimer PT 13.1 Seconds (9.4-12.1) H 07/05/19 23:15 Consult Discharge Plan - Plan Referrals: Doris Condon, CUSTOMER CARE VOICE CONSULTANT [Primary Care Provider] - (1) Post-operative hemorrhage Qualifiers: Surgical complication system/body Area: genitourinary Procedure type: non- genitourinary Qualified Code(s): N99.821 - Postprocedural hemorrhage of a genitourinary system organ or structure following other procedure (2) Hypothyroidism Qualifiers: Hypothyroidism type: unspecified Qualified Code(s): E03.9 - Hypothyroidism, unspecified (3) Hypertension Qualifiers: Hypertension type: essential hypertension Qualified Code(s): I10 - Essential (primary) hypertension
[2019-07-06] MEDS ORDERED: Ondansetron 4 MG/2 ML VIAL IVP PRN (17:49)
[2019-07-06] MEDS ORDERED: Naloxone 0.4 MG/ML INJ IVP PRN (17:49)
[2019-07-06] MEDS ORDERED: Acetaminophen 325 MG TABLET PO PRN (17:49)
[2019-07-06 20:18] LABS: Hematocrit 32.6 % (35.3-44.9); Hemoglobin 10.4 g/dL (11.5-15.4)
[2019-07-06] MEDS: Piperacillin/Tazobactam 3.375 GM in 0.9 % Sodium Chloride Mini Bag 100 ML IVPB SCH (21:42)
[2019-07-07] MEDS: *HR* HYDROcodone/Acet 5/325 mg TABLET PO PRN ×2 (02:10→08:15)
[2019-07-07 04:52] LABS: Basophils % 0.3 %; Eosinophils # 0.2 K/mcL (0.0-0.6); Eosinophils % 1.4 %; Hematocrit 26.6 % (35.3-44.9); Immature Granulocytes % 0.4 % (0-4); Lymphocytes # 2.6 K/mcL (0.6-4.6); Lymphocytes % 24.6 %; Mean Corpuscular HGB Conc 32.3 g/dL (31.6-35.5); Mean Corpuscular Hemoglobin 29.7 pg (28.0-33.3); Mean Corpuscular Volume 91.7 fL (83.0-100.0); Mean Platelet Volume 11.6 fL (9.4-12.4); Monocytes # 1.1 K/mcL (0.0-1.3); Monocytes % 10.1 %; Neutrophils # 6.6 K/mcL (1.6-8.9); Platelet Count 156 K/mcL (140-400); Red Cell Distribution Width 14.5 % (11.5-14.5); Segmented Neutrophils % 63.2 %; White Blood Count 10.5 K/mcL (4.3-11.1)
[2019-07-07 04:54] LABS: Hemoglobin 8.6 g/dL (11.5-15.4)
[2019-07-07 05:07] LABS: BUN/Creatinine Ratio 15 (6-26); Blood Urea Nitrogen 15 mg/dL (8-23); Calcium 7.7 mg/dL (8.6-10.3); Carbon Dioxide 24 mEq/L (23-29); Chloride 111 mEq/L (98-107); Glucose 115 mg/dL (70-105); Magnesium 1.6 mg/dL (1.6-2.6); Osmolality,Calculated 296 (280-300); Potassium 3.8 mEq/L (3.5-5.1); Sodium 142 mEq/L (136-145); eGFR For African Americans > 60 (> 60); eGFR For Non-African Americans 56 (> 60)
[2019-07-07] MEDS: Piperacillin/Tazobactam 3.375 GM in 0.9 % Sodium Chloride Mini Bag 100 ML IVPB SCH (08:11)
[2019-07-07] MEDS: 0.9 % Sodium Chloride 1,000 ML IVC SCH (08:15)
[2019-07-07 10:40] LABS: Hematocrit 29.6 % (35.3-44.9); Hemoglobin 9.6 g/dL (11.5-15.4)
--- NOTE | 2019-07-07 10:55 | Urology Progress Note ---
Date of Encounter: 07/07/19 Time of Encounter: 09:30 - Assessment and Plan (1) Urinary incontinence Current Visit: Yes Status: Acute Qualifiers: Urinary Incontinence type: unspecified incontinence Qualified Code(s): R32 - Unspecified urinary incontinence (2) Erosion of bladder suspension mesh Current Visit: Yes Status: Acute Assessment and plan: Patient is a 68-year-old female who presents 2 days status post complicated lysis of adhesions, robotic transabdominal removal of bladder mesh, repair of bladder and exploratory laparoscopy with closure of dorsal venous complex. Vital signs have remained stable and afebrile. Patient has not discharge goals of independent ambulation, pain control, and tolerating normal diet. I removed XU drain, and patient tolerated that well. We discussed postoperative expectations, restrictions and follow-up. Patient will be scheduled for an outpatient cystogram and follow-up appointment in 2 weeks. Patient is eligible for discharge from a urologic standpoint. Qualifiers: Encounter type: sequela Qualified Code(s): T83.718S - Erosion of other implanted mesh to organ or tissue, sequela Progress Note Subjective: no new complaints, feels better Narrative: POD #2. Patient seen and examined sitting upright in bed in no apparent d istress. Patient is tolerating normal diet without nausea or vomiting. She denies any uncontrolled pain, fever, chills, flank pain, chest pain or dyspnea. Jaeger catheter is indwelling and draining transparent, clear yellow urine into bedside bag. Objective Initial Vital Signs Temp Pulse Resp BP Pulse Ox 98.3 F 71 18 163/92 96 07/05/19 10:07/05/19 10:07/05/19 10:07/05/19 10:07/05/19 10:01 - General physical appearance Present: no distress, no pain - Respiratory Present: normal expansion, normal respiratory effort - Abdomen Present: soft, non tender, wound (Primary incisions clean, dry, intact). Absent: distended - Genitourinary Urine Appearance: Present: Clear - Integumentary Present: no rash, no abnormal pigmentation - Musculoskeletal Present: normal posture - Psychiatric Present: oriented to time, oriented to person, oriented to place, speech is normal, memory intact - Labs 07/07/19 10:07/07/19 03:56 Diabetes panel 07/07/19 Range/Units 03:56 Sodium 142 (136-145) mEq/L Potassium 3.8 (3.5-5.1) mEq/L Chloride 111 H (98-107) mEq/L Carbon Dioxide 24 (23-29) mEq/L BUN 15 (8-23) mg/dL Creatinine 0.99 (0.60-1.20) mg/dL Glucose 115 H (70-105) mg/dL Calcium 7.7 L (8.6-10.3) mg/dL Calcium panel 07/07/19 Range/Units 03:56 Calcium 7.7 L (8.6-10.3) mg/dL Pituitary panel 07/07/19 Range/Units 03:56 Sodium 142 (136-145) mEq/L Potassium 3.8 (3.5-5.1) mEq/L Chloride 111 H (98-107) mEq/L Carbon Dioxide 24 (23-29) mEq/L BUN 15 (8-23) mg/dL Creatinine 0.99 (0.60-1.20) mg/dL Glucose 115 H (70-105) mg/dL Calcium 7.7 L (8.6-10.3) mg/dL Adrenal panel 07/07/19 Range/Units 03:56 Sodium 142 (136-145) mEq/L Potassium 3.8 (3.5-5.1) mEq/L Chloride 111 H (98-107) mEq/L Carbon Dioxide 24 (23-29) mEq/L BUN 15 (8-23) mg/dL Creatinine 0.99 (0.60-1.20) mg/dL Glucose 115 H (70-105) mg/dL Calcium 7.7 L (8.6-10.3) mg/dL Consult Discharge Plan - Plan Referrals: Doris Condon CNP [Primary Care Provider] - Phillip Merritt MD [Partnered Physician] -
[2019-07-07 11:30] VITALS: BP 114/69
--- NOTE | 2019-07-07 12:08 | Discharge Summary ---
Orders not resulted at time of discharge: Pending orders 07/06/19 02:50 Culture,Blood [BC] Stat Date of Encounter: 07/07/19 Time of Encounter: 07:45 - Discharge Diagnosis (1) Post-operative hemorrhage Priority: Primary Status: Acute Qualifiers: Surgical complication system/body Area: genitourinary Procedure type: non- genitourinary Qualified Code(s): N99.821 - Postprocedural hemorrhage of a genitourinary system organ or structure following other procedure (2) Erosion of bladder suspension mesh Priority: Secondary Status: Acute Qualifiers: Encounter type: sequela Qualified Code(s): T83.718S - Erosion of other implanted mesh to organ or tissue, sequela (3) Hypothyroidism Priority: Secondary Status: Acute Qualifiers: Hypothyroidism type: unspecified Qualified Code(s): E03.9 - Hypothyroidism, unspecified (4) Urinary incontinence Priority: Secondary Status: Acute Qualifiers: Urinary Incontinence type: unspecified incontinence Qualified Code(s): R32 - Unspecified urinary incontinence (5) Hypertension Priority: Secondary Status: Chronic Qualifiers: Hypertension type: essential hypertension Qualified Code(s): I10 - Essential (primary) hypertension (6) DVT prophylaxis Priority: Secondary Status: Acute Hospital course: Ms. Paredes is a 68 year old female who presented for removal of bladder mesh. The post operative procedure became complicated with hemorrhage requiring transfusion of 2 units PRBCs. Patient was sent back to [facility] t secure hemostasis which was successful. He H and H has remained stable and she will be discharged o follow up with urology in 2 weeks. Discharge discussed with: patient, nurse, behavioral consultant - Time Spent with Patient Total time spent providing and/or coordinating discharge services: Time spent: Greater than 30 minutes (35) - Discharge Medications Prescriptions: New Acetaminophen [Tylenol] 650 mg PO Q6H PRN #20 tablet PRN Reason: Mild Pain/Fever Tramadol HCl [Ultram] 50 mg PO QID PRN 5 Days #20 tab PRN Reason: Pain Continued Albuterol Sulfate [Proventil Inhaler] 2 puff IH Q6HR PRN #1 hfa.aer.ad PRN Reason: Shortness Of Breath Metoprolol [Lopressor] 12.5 mg PO BID #30 tablet Levothyroxine Sodium [Levoxyl] 50 mcg PO QAM Aspirin [Lo-Dose Aspirin EC] 81 mg PO QAM Losartan Potassium [Cozaar] 50 mg PO QAM Furosemide [Lasix] 40 mg PO QAM PRN PRN Reason: SWELLING Cyclobenzaprine HCl 10 mg PO TID PRN PRN Reason: Muscle Spasm Omeprazole [PriLOSEC] 40 mg PO QAM Oxybutynin Chloride [Ditropan XL] 10 mg PO QAM Home Medications: Cyclobenzaprine HCl 10 mg PO TID PRN 07/22/16 [History] Furosemide [Lasix] 40 mg PO QAM PRN 07/22/16 [History] Omeprazole [PriLOSEC] 40 mg PO QAM 07/22/16 [History] Oxybutynin Chloride [Ditropan XL] 10 mg PO QAM 04/08/19 [History] Albuterol Sulfate [Proventil Inhaler] 2 puff IH Q6HR PRN #1 hfa.aer.ad 04/09/19 [Rx] Metoprolol [Lopressor] 12.5 mg PO BID #30 tablet 04/09/19 [Rx] Levothyroxine Sodium [Levoxyl] 50 mcg PO QAM 05/21/19 [History] Aspirin [Lo-Dose Aspirin EC] 81 mg PO QAM 07/05/19 [History] Losartan Potassium [Cozaar] 50 mg PO QAM 07/05/19 [History] Acetaminophen [Tylenol] 650 mg PO Q6H PRN #20 tablet 07/07/19 [Rx] Tramadol HCl [Ultram] 50 mg PO QID PRN 5 Days #20 tab 07/07/19 [Rx] Allergies/Adverse Reactions: Allergy/AdvReac Type Severity Reaction Status Date / Time etodolac Allergy Hives Verified 07/05/19 10:35 Lemon Allergy Blister Verified 07/05/19 10:35 tetracaine [From Pontocaine] AdvReac Severe Anaphylaxis Verified 07/05/19 10:35 Date of admission: 07/05/19 23:52 Primary care physician: Doris Condon CNP Consults: 07/06/19 16:25 Consult to Hospitalist [CONS] Routine Consulting Provider: Hospitalist Radha Reason for Consult: Hypotension after surgery. Consult has already been completed. Delayed order being placed. Call Completed: Yes - Constitutional Vitals: Temp Pulse Resp BP Pulse Ox 36.5 C 76 15 114/69 94 07/07/19 11:24 07/07/19 11:24 07/07/19 11:24 07/07/19 11:24 07/07/19 11:24 Exam: GENERAL: Not in distress. Alert and Oriented HEENT: EOMI, PERRLA MOUTH: Moist oral mucosa. NECK:No JVD, No lymph nodes. CHEST AND LUNGS: Normal breath sounds, no wheezes or crackles HEART: S1 and S2 normal, no murmurs ABDOMEN: Soft, nontender, no organomegaly. SKIN: Normal color, no rahses, no lesions EXTREMITIES: No deformity, no edema, no tenderness, no joint swelling or clubbing NEUROLOGICAL: Normal cognition, normal motor and sensory exam. - Patient Status Disposition: Home, Self-Care Condition: Fair Functional capacity at discharge: independent ambulation Overall status at discharge: patient is progressing back to baseline - Discharge Instructions Follow Up With: Doris Condon CNP [Primary Care Provider] - Phillip Merritt MD [Partnered Physician] - - Diet and Activity Activity: increase activity as tolerated Diet: advance to your usual diet
== END 2019-07-07 14:17 | disposition home or self-care (01) | DRG 654 ==
LOC: SAMDAY 09:19 → ICNU 21:52 → INTOOBSV 21:55 → ICNU 21:55 → SUATTDRO 23:52 → 3ANU 07-06 17:23
PROVIDERS: ADMIT Urology; ATTEND Internal Medicine

== ENCOUNTER 2019-07-14 15:49 | Inpatient (IN) ==
[2019-07-14] MEDS ORDERED: Isovue-370 500 ML BOTTLE IVP ONE (16:05)
[2019-07-14 16:27] LABS: Basophils % 0.2 %; Eosinophils # 0.4 K/mcL (0.0-0.6); Eosinophils % 1.9 %; Hematocrit 30.6 % (35.3-44.9); Hemoglobin 9.9 g/dL (11.5-15.4); Immature Granulocytes % 1.2 % (0-4); Lymphocytes # 2.3 K/mcL (0.6-4.6); Mean Corpuscular HGB Conc 32.4 g/dL (31.6-35.5); Mean Corpuscular Hemoglobin 29.6 pg (28.0-33.3); Mean Corpuscular Volume 91.6 fL (83.0-100.0); Mean Platelet Volume 10.2 fL (9.4-12.4); Monocytes # 1.6 K/mcL (0.0-1.3); Monocytes % 7.9 %; Neutrophils # 15.9 K/mcL (1.6-8.9); Platelet Count 324 K/mcL (140-400); Red Blood Count 3.34 M/mcL (3.82-4.97); Red Cell Distribution Width 13.6 % (11.5-14.5); Segmented Neutrophils % 77.8 %; White Blood Count 20.4 K/mcL (4.3-11.1)
[2019-07-14 16:37] LABS: Bilirubin,Urine Small (Negative); Blood,Urine Large (Negative); Clarity,Urine Turbid (Clear); Color,Urine Orange (Yellow); Glucose,Urine (UA) Normal (Normal); Ketones,Urine 40 mg/dL (Negative); Leukocyte Esterase,Urine Large (Negative); Nitrite,Urine Positive (Negative); Protein,Urine 100 mg/dL (Neg-Trace); Specific Gravity,Urine 1.024 (1.010-1.025); Urobilinogen,Urine Normal (Normal)
[2019-07-14 16:39] LABS: Bacteria,Urine Many per hpf (None-Few); Hyaline Casts,Urine None Seen per lpf (None-Few); RBC,Urine 15-30 per hpf (0-3); Squamous Epithelial Cell,Urine Many per lpf (None-Few); WBC,Urine TNTC per hpf (0-3)
[2019-07-14 16:43] LABS: BUN/Creatinine Ratio 16 (6-26); Blood Urea Nitrogen 14 mg/dL (8-23); Calcium 8.5 mg/dL (8.6-10.3); Carbon Dioxide 24 mEq/L (23-29); Chloride 99 mEq/L (98-107); Glucose 95 mg/dL (70-105); Osmolality,Calculated 276 (280-300); Potassium 3.4 mEq/L (3.5-5.1); Sodium 133 mEq/L (136-145); eGFR For African Americans > 60 (> 60); eGFR For Non-African Americans > 60 (> 60)
[2019-07-14] MEDS ORDERED: Isovue-370 500 ML BOTTLE PO ONE (16:43)
[2019-07-14] MEDS ORDERED: *HR* FentaNYL (PF) 100 MCG/2 ML VIAL IVP ONE (17:00)
[2019-07-14] MEDS ORDERED: Ondansetron 4 MG/2 ML VIAL IVP ONE (17:00)
[2019-07-14] MEDS ORDERED: MetroNIDAZOLE 500 MG/100 ML 500 MG/100 ML BAG IVPB ONE (19:39)
[2019-07-14] MEDS ORDERED: Piperacillin/Tazobactam 3.375 GM in 0.9 % Sodium Chloride Mini Bag 100 ML IVPB ONE (19:39)
[2019-07-14] MEDS ORDERED: 0.9 % Sodium Chloride 1,000 ML IVC ONE ×2 (19:48→19:49)
[2019-07-14] MEDS ORDERED: 0.9 % Sodium Chloride 1,000 ML IVC SCH (21:00)
[2019-07-14] MEDS ORDERED: Ondansetron 4 MG/2 ML VIAL IVP PRN (22:52)
[2019-07-14] MEDS ORDERED: Naloxone 0.4 MG/ML INJ IVP PRN (22:52)
[2019-07-15] MEDS: Piperacillin/Tazobactam 3.375 GM in 0.9 % Sodium Chloride Mini Bag 100 ML IVPB SCH ×3 (03:42→20:42)
[2019-07-15 04:33] LABS: Basophils % 0.2 %; Eosinophils # 1.1 K/mcL (0.0-0.6); Eosinophils % 5.9 %; Hematocrit 24.8 % (35.3-44.9); Immature Granulocytes % 0.7 % (0-4); Lymphocytes # 1.5 K/mcL (0.6-4.6); Lymphocytes % 8.1 %; Mean Corpuscular HGB Conc 32.3 g/dL (31.6-35.5); Mean Corpuscular Hemoglobin 29.7 pg (28.0-33.3); Mean Corpuscular Volume 92.2 fL (83.0-100.0); Mean Platelet Volume 10.5 fL (9.4-12.4); Monocytes # 1.2 K/mcL (0.0-1.3); Monocytes % 6.5 %; Neutrophils # 14.7 K/mcL (1.6-8.9); Platelet Count 296 K/mcL (140-400); Red Blood Count 2.69 M/mcL (3.82-4.97); Segmented Neutrophils % 78.6 %; White Blood Count 18.7 K/mcL (4.3-11.1)
[2019-07-15 04:39] LABS: INR 1.4; Prothrombin Time 16.4 Seconds (9.4-12.1)
[2019-07-15 04:42] LABS: Activated Partial Thrombo Time 28.7 Seconds (26.0-36.0)
[2019-07-15 04:50] LABS: Alanine Aminotransferase 24 Units/L (7-52); Albumin 2.7 g/dL (3.5-5.7); Alkaline Phosphatase 72 Units/L (34-104); Aspartate Amino Transferase 25 Units/L (13-39); BUN/Creatinine Ratio 16 (6-26); Bilirubin,Total 1.2 mg/dL (0.3-1.0); Blood Urea Nitrogen 14 mg/dL (8-23); Calcium 7.3 mg/dL (8.6-10.3); Carbon Dioxide 24 mEq/L (23-29); Chloride 103 mEq/L (98-107); Globulin 2.6 g/dL (2.4-3.5); Glucose 97 mg/dL (70-105); Osmolality,Calculated 280 (280-300); Potassium 3.3 mEq/L (3.5-5.1); Sodium 135 mEq/L (136-145); Total Protein 5.3 g/dL (6.4-8.9); eGFR For African Americans > 60 (> 60); eGFR For Non-African Americans > 60 (> 60)
[2019-07-15] MEDS ORDERED: Potassium Chloride 40 MEQ, Lidocaine 1% 2 ML in 0.9 % Sodium Chloride 500 ML IVPB ONE (09:32)
[2019-07-15] MEDS ORDERED: *HR* FentaNYL (PF) 100 MCG/2 ML VIAL IVP ONE (12:46)
[2019-07-15] MEDS ORDERED: *HR* Midazolam HCl 2 MG/2 ML VIAL IVP ONE (12:46)
[2019-07-15] MEDS ORDERED: 0.9 % Sodium Chloride 500 ML ONE (12:55)
[2019-07-15] MEDS: Potassium Chloride Elixir 20 MEQ/15 ML UDC PO SCH (22:18)
[2019-07-16 05:18] LABS: Basophils % 0.3 %; Eosinophils # 1.3 K/mcL (0.0-0.6); Hematocrit 23.8 % (35.3-44.9); Hemoglobin 7.6 g/dL (11.5-15.4); Immature Granulocytes % 0.8 % (0-4); Lymphocytes # 1.9 K/mcL (0.6-4.6); Lymphocytes % 12.6 %; Mean Corpuscular HGB Conc 31.9 g/dL (31.6-35.5); Mean Corpuscular Hemoglobin 29.9 pg (28.0-33.3); Mean Corpuscular Volume 93.7 fL (83.0-100.0); Mean Platelet Volume 10.9 fL (9.4-12.4); Monocytes % 6.7 %; Neutrophils # 10.3 K/mcL (1.6-8.9); Platelet Count 301 K/mcL (140-400); Red Blood Count 2.54 M/mcL (3.82-4.97); Red Cell Distribution Width 14.3 % (11.5-14.5); Segmented Neutrophils % 70.6 %; White Blood Count 14.6 K/mcL (4.3-11.1)
[2019-07-16] MEDS: Piperacillin/Tazobactam 3.375 GM in 0.9 % Sodium Chloride Mini Bag 100 ML IVPB SCH ×3 (05:25→22:14)
[2019-07-16 05:35] LABS: BUN/Creatinine Ratio 14 (6-26); Blood Urea Nitrogen 12 mg/dL (8-23); Calcium 7.6 mg/dL (8.6-10.3); Carbon Dioxide 23 mEq/L (23-29); Chloride 106 mEq/L (98-107); Glucose 89 mg/dL (70-105); Osmolality,Calculated 281 (280-300); Potassium 3.5 mEq/L (3.5-5.1); Sodium 136 mEq/L (136-145); eGFR For African Americans > 60 (> 60); eGFR For Non-African Americans > 60 (> 60)
[2019-07-16] MEDS ORDERED: *HR* FentaNYL (PF) 100 MCG/2 ML VIAL IVP PRN (07:50)
[2019-07-16] MEDS: Potassium Chloride Elixir 20 MEQ/15 ML UDC PO SCH (08:36)
[2019-07-16] MEDS: Aspirin Enteric Coated 81 MG Tablet PO SCH (08:59)
[2019-07-16] MEDS ORDERED: traMADol 50 MG TABLET PO ONE (22:49)
[2019-07-17] MEDS: Piperacillin/Tazobactam 3.375 GM in 0.9 % Sodium Chloride Mini Bag 100 ML IVPB SCH ×3 (04:11→20:43)
[2019-07-17] MEDS: Aspirin Enteric Coated 81 MG Tablet PO SCH (09:09)
[2019-07-17 12:01] LABS: Basophils % 0.4 %; Eosinophils # 1.3 K/mcL (0.0-0.6); Eosinophils % 13.4 %; Hemoglobin 8.6 g/dL (11.5-15.4); Immature Granulocytes % 1.6 % (0-4); Lymphocytes # 1.7 K/mcL (0.6-4.6); Lymphocytes % 17.1 %; Mean Corpuscular HGB Conc 31.9 g/dL (31.6-35.5); Mean Corpuscular Hemoglobin 29.8 pg (28.0-33.3); Mean Corpuscular Volume 93.4 fL (83.0-100.0); Mean Platelet Volume 10.9 fL (9.4-12.4); Monocytes # 0.6 K/mcL (0.0-1.3); Monocytes % 6.5 %; Neutrophils # 6.1 K/mcL (1.6-8.9); Platelet Count 363 K/mcL (140-400); Red Blood Count 2.89 M/mcL (3.82-4.97); Red Cell Distribution Width 14.4 % (11.5-14.5); White Blood Count 9.9 K/mcL (4.3-11.1)
[2019-07-17 12:11] LABS: BUN/Creatinine Ratio 13 (6-26); Blood Urea Nitrogen 11 mg/dL (8-23); Carbon Dioxide 25 mEq/L (23-29); Chloride 108 mEq/L (98-107); Glucose 149 mg/dL (70-105); Osmolality,Calculated 288 (280-300); Potassium 3.4 mEq/L (3.5-5.1); Sodium 138 mEq/L (136-145); eGFR For African Americans > 60 (> 60); eGFR For Non-African Americans > 60 (> 60)
[2019-07-17] MEDS: tiZANidine 4 MG TABLET PO PRN (23:13)
[2019-07-18] MEDS: Piperacillin/Tazobactam 3.375 GM in 0.9 % Sodium Chloride Mini Bag 100 ML IVPB SCH ×3 (03:20→21:27)
[2019-07-18] MEDS: tiZANidine 4 MG TABLET PO PRN ×2 (06:44→21:27)
[2019-07-18 08:09] LABS: Hematocrit 25.6 % (35.3-44.9); Mean Corpuscular HGB Conc 31.3 g/dL (31.6-35.5); Mean Corpuscular Hemoglobin 29.5 pg (28.0-33.3); Mean Corpuscular Volume 94.5 fL (83.0-100.0); Mean Platelet Volume 10.8 fL (9.4-12.4); Platelet Count 373 K/mcL (140-400); Red Blood Count 2.71 M/mcL (3.82-4.97); Red Cell Distribution Width 14.4 % (11.5-14.5); White Blood Count 10.1 K/mcL (4.3-11.1)
[2019-07-18 08:26] LABS: BUN/Creatinine Ratio 10 (6-26); Blood Urea Nitrogen 8 mg/dL (8-23); Calcium 7.8 mg/dL (8.6-10.3); Carbon Dioxide 26 mEq/L (23-29); Chloride 112 mEq/L (98-107); Glucose 93 mg/dL (70-105); Osmolality,Calculated 286 (280-300); Potassium 3.4 mEq/L (3.5-5.1); Sodium 139 mEq/L (136-145); eGFR For African Americans > 60 (> 60); eGFR For Non-African Americans > 60 (> 60)
[2019-07-18 08:38] LABS: Lymphocytes # 2.2 K/mcL (0.6-4.6); Monocytes # 0.4 K/mcL (0.0-1.3); Neutrophils # 6.5 K/mcL (1.6-8.9)
[2019-07-18 08:40] LABS: Platelet Estimate Normal (Normal)
[2019-07-18] MEDS: Aspirin Enteric Coated 81 MG Tablet PO SCH (09:55)
[2019-07-18] MEDS ORDERED: Furosemide 20 MG/2 ML VIAL IVP ONE (11:21)
[2019-07-18] MEDS ORDERED: Furosemide 40 MG TABLET PO PRN (11:24)
[2019-07-18] MEDS: traMADol 50 MG TABLET PO PRN (22:08)
[2019-07-18] MEDS ORDERED: *HR* OxyCODONE Immed Rel 5 MG TABLET PO PRN (23:56)
[2019-07-19] MEDS: Piperacillin/Tazobactam 3.375 GM in 0.9 % Sodium Chloride Mini Bag 100 ML IVPB SCH ×3 (04:18→20:49)
[2019-07-19 05:23] LABS: Basophils # 0.1 K/mcL (0.0-0.2); Basophils % 0.5 %; Eosinophils # 1.5 K/mcL (0.0-0.6); Eosinophils % 14.3 %; Hematocrit 27.1 % (35.3-44.9); Hemoglobin 8.5 g/dL (11.5-15.4); Immature Granulocytes % 4.6 % (0-4); Lymphocytes # 2.9 K/mcL (0.6-4.6); Mean Corpuscular HGB Conc 31.4 g/dL (31.6-35.5); Mean Corpuscular Hemoglobin 29.3 pg (28.0-33.3); Mean Corpuscular Volume 93.4 fL (83.0-100.0); Mean Platelet Volume 10.3 fL (9.4-12.4); Monocytes % 9.8 %; Neutrophils # 4.4 K/mcL (1.6-8.9); Platelet Count 410 K/mcL (140-400); Red Cell Distribution Width 14.4 % (11.5-14.5); Segmented Neutrophils % 42.8 %; White Blood Count 10.2 K/mcL (4.3-11.1)
[2019-07-19 05:34] LABS: BUN/Creatinine Ratio 10 (6-26); Blood Urea Nitrogen 9 mg/dL (8-23); Carbon Dioxide 27 mEq/L (23-29); Chloride 109 mEq/L (98-107); Glucose 96 mg/dL (70-105); Osmolality,Calculated 287 (280-300); Potassium 3.6 mEq/L (3.5-5.1); Sodium 139 mEq/L (136-145); eGFR For African Americans > 60 (> 60); eGFR For Non-African Americans > 60 (> 60)
[2019-07-19] MEDS: Furosemide 40 MG/4 ML VIAL IVP SCH ×2 (10:16→20:47)
[2019-07-19] MEDS: Aspirin Enteric Coated 81 MG Tablet PO SCH (10:17)
[2019-07-19] MEDS ORDERED: Isovue-370 500 ML BOTTLE IVP ONE (10:45)
[2019-07-20] MEDS: Piperacillin/Tazobactam 3.375 GM in 0.9 % Sodium Chloride Mini Bag 100 ML IVPB SCH ×3 (04:03→20:59)
[2019-07-20 06:45] LABS: Basophils # 0.1 K/mcL (0.0-0.2); Basophils % 0.6 %; Eosinophils # 1.4 K/mcL (0.0-0.6); Eosinophils % 12.5 %; Hematocrit 31.1 % (35.3-44.9); Immature Granulocytes % 3.6 % (0-4); Lymphocytes # 2.7 K/mcL (0.6-4.6); Lymphocytes % 23.3 %; Mean Corpuscular HGB Conc 32.2 g/dL (31.6-35.5); Mean Corpuscular Hemoglobin 29.6 pg (28.0-33.3); Mean Platelet Volume 10.4 fL (9.4-12.4); Monocytes % 8.6 %; Neutrophils # 5.9 K/mcL (1.6-8.9); Nucleated Red Blood Cells 0.2 /100 WBC (0); Platelet Count 497 K/mcL (140-400); Red Blood Count 3.38 M/mcL (3.82-4.97); Red Cell Distribution Width 14.6 % (11.5-14.5); Segmented Neutrophils % 51.4 %; White Blood Count 11.5 K/mcL (4.3-11.1)
[2019-07-20 06:50] LABS: INR 1.2; Prothrombin Time 13.6 Seconds (9.4-12.1)
[2019-07-20 07:07] LABS: BUN/Creatinine Ratio 10 (6-26); Blood Urea Nitrogen 8 mg/dL (8-23); Calcium 8.6 mg/dL (8.6-10.3); Carbon Dioxide 26 mEq/L (23-29); Chloride 105 mEq/L (98-107); Glucose 97 mg/dL (70-105); Osmolality,Calculated 288 (280-300); Potassium 3.5 mEq/L (3.5-5.1); Sodium 140 mEq/L (136-145); eGFR For African Americans > 60 (> 60); eGFR For Non-African Americans > 60 (> 60)
[2019-07-20] MEDS: Furosemide 40 MG/4 ML VIAL IVP SCH ×2 (08:26→20:59)
[2019-07-20] MEDS: Aspirin Enteric Coated 81 MG Tablet PO SCH (08:27)
[2019-07-20] MEDS ORDERED: 0.9 % Sodium Chloride 500 ML ONE (14:36)
[2019-07-20] MEDS ORDERED: *HR* Midazolam HCl 2 MG/2 ML VIAL IVP ONE (14:48)
[2019-07-20] MEDS ORDERED: *HR* FentaNYL (PF) 100 MCG/2 ML VIAL IVP ONE (14:48)
[2019-07-20] MEDS: traMADol 50 MG TABLET PO PRN (20:59)
[2019-07-21 04:44] LABS: Basophils # 0.1 K/mcL (0.0-0.2); Basophils % 0.7 %; Eosinophils % 10.3 %; Hematocrit 30.1 % (35.3-44.9); Hemoglobin 9.6 g/dL (11.5-15.4); Immature Granulocytes % 2.3 % (0-4); Lymphocytes # 2.4 K/mcL (0.6-4.6); Lymphocytes % 24.1 %; Mean Corpuscular HGB Conc 31.9 g/dL (31.6-35.5); Mean Corpuscular Hemoglobin 29.7 pg (28.0-33.3); Mean Corpuscular Volume 93.2 fL (83.0-100.0); Mean Platelet Volume 10.1 fL (9.4-12.4); Monocytes # 0.8 K/mcL (0.0-1.3); Monocytes % 7.6 %; Neutrophils # 5.5 K/mcL (1.6-8.9); Platelet Count 491 K/mcL (140-400); Red Blood Count 3.23 M/mcL (3.82-4.97); Red Cell Distribution Width 14.7 % (11.5-14.5); White Blood Count 10.1 K/mcL (4.3-11.1)
[2019-07-21 05:05] LABS: BUN/Creatinine Ratio 12 (6-26); Blood Urea Nitrogen 13 mg/dL (8-23); Calcium 8.5 mg/dL (8.6-10.3); Carbon Dioxide 24 mEq/L (23-29); Chloride 105 mEq/L (98-107); Glucose 115 mg/dL (70-105); Osmolality,Calculated 287 (280-300); Potassium 3.3 mEq/L (3.5-5.1); Sodium 138 mEq/L (136-145); eGFR For African Americans > 60 (> 60); eGFR For Non-African Americans 51 (> 60)
[2019-07-21] MEDS: Piperacillin/Tazobactam 3.375 GM in 0.9 % Sodium Chloride Mini Bag 100 ML IVPB SCH ×3 (05:40→20:32)
[2019-07-21] MEDS: Aspirin Enteric Coated 81 MG Tablet PO SCH (08:42)
[2019-07-21] MEDS: traMADol 50 MG TABLET PO PRN (22:59)
[2019-07-22] MEDS: Piperacillin/Tazobactam 3.375 GM in 0.9 % Sodium Chloride Mini Bag 100 ML IVPB SCH ×3 (04:55→19:58)
[2019-07-22 05:40] LABS: Basophils # 0.1 K/mcL (0.0-0.2); Basophils % 0.7 %; Eosinophils # 1.1 K/mcL (0.0-0.6); Eosinophils % 9.6 %; Hematocrit 30.4 % (35.3-44.9); Hemoglobin 9.6 g/dL (11.5-15.4); Immature Granulocytes % 1.7 % (0-4); Lymphocytes # 2.3 K/mcL (0.6-4.6); Lymphocytes % 21.1 %; Mean Corpuscular HGB Conc 31.6 g/dL (31.6-35.5); Mean Corpuscular Hemoglobin 29.4 pg (28.0-33.3); Mean Corpuscular Volume 93.3 fL (83.0-100.0); Monocytes % 9.4 %; Neutrophils # 6.3 K/mcL (1.6-8.9); Platelet Count 465 K/mcL (140-400); Red Blood Count 3.26 M/mcL (3.82-4.97); Red Cell Distribution Width 14.8 % (11.5-14.5); Segmented Neutrophils % 57.5 %
[2019-07-22] MEDS: Aspirin Enteric Coated 81 MG Tablet PO SCH (09:30)
[2019-07-22 09:32] LABS: Calcium 8.7 mg/dL (8.6-10.3); Potassium 3.8 mEq/L (3.5-5.1)
[2019-07-22] MEDS ORDERED: Lidocaine -MPF 1% 5 ML AMPUL INFILT ONE (11:51)
[2019-07-22] MEDS: traMADol 50 MG TABLET PO PRN (19:57)
[2019-07-22] MEDS ORDERED: 0.9 % Sodium Chloride 1,000 ML IVC SCH (20:45)
[2019-07-23] MEDS: Piperacillin/Tazobactam 3.375 GM in 0.9 % Sodium Chloride Mini Bag 100 ML IVPB SCH ×2 (04:57→12:17)
[2019-07-23 05:31] LABS: Basophils # 0.1 K/mcL (0.0-0.2); Basophils % 0.7 %; Eosinophils % 8.1 %; Hematocrit 29.9 % (35.3-44.9); Hemoglobin 9.4 g/dL (11.5-15.4); Immature Granulocytes % 1.3 % (0-4); Lymphocytes # 2.4 K/mcL (0.6-4.6); Mean Corpuscular HGB Conc 31.4 g/dL (31.6-35.5); Mean Corpuscular Hemoglobin 29.5 pg (28.0-33.3); Mean Corpuscular Volume 93.7 fL (83.0-100.0); Mean Platelet Volume 9.9 fL (9.4-12.4); Monocytes # 0.8 K/mcL (0.0-1.3); Neutrophils # 7.5 K/mcL (1.6-8.9); Platelet Count 487 K/mcL (140-400); Red Blood Count 3.19 M/mcL (3.82-4.97); Red Cell Distribution Width 14.9 % (11.5-14.5); Segmented Neutrophils % 62.9 %
[2019-07-23 05:46] LABS: Calcium 8.3 mg/dL (8.6-10.3); Potassium 3.8 mEq/L (3.5-5.1)
[2019-07-23] MEDS: Aspirin Enteric Coated 81 MG Tablet PO SCH (09:31)
[2019-07-23 10:36] VITALS: BP 134/76
[2019-07-23] MEDS ORDERED: Aminoglycoside Consult 1 EACH MC ONE (16:38)
== END 2019-07-23 16:39 | DRG 862 ==
LOC: 3ANU 15:49 → EMEROOARM 15:49 → SUATTDRO 20:32 → 3ANU 21:14 → SUATTDRO 07-15 15:36
PROVIDERS: ADMIT Internal Medicine; ATTEND Internal Medicine
PROC: IRDRAIN (2019-07-15 13:00)